=== PATIENT | female | born 1975 | race American Indian/Alaskan Native ===

== ENCOUNTER 2019-03-14 12:21 | Emergency (ER) | payer SELFPAY ==
--- NOTE | 2019-03-14 12:30 | Emergency Department Report ---
Blank Doc - Documentation Documentation: This is a 44-year-old female that presents with right knee pain. Patient also has blurry vision and headache. Stated was a trip and fall. This initial assessment/diagnostic orders/clinical plan/treatment(s) is/are subject to change based on patient's health status, clinical progression and re- assessment by fellow clinical providers in the ED. Further treatment and workup at subsequent clinical providers discretion. Patient/guardians urged not to elope from the ED as their condition may be serious if not clinically assessed and managed. Initial orders include: 1- Patient sent to [facility] for further evaluation and treatment 2- labs 3- CT head 4- xray
[2019-03-14] MEDS ORDERED: CATAPRES PO ONE (13:07)
[2019-03-14 13:23] LABS: Basophils % (Auto) 0.4 % (0.0-1.8); Eosinophils # (Auto) 0.2 K/mm3 (0.0-0.4); Eosinophils % (Auto) 1.6 % (0.0-4.3); Hemoglobin 11.6 gm/dl (10.1-14.3); Lymphocytes # (Auto) 3.4 K/mm3 (1.2-5.4); Lymphocytes % (Auto) 29.6 % (13.4-35.0); Mean Corpuscular HGB Conc 31 % (30-34); Monocytes # (Auto) 0.9 K/mm3 (0.0-0.8); Monocytes % (Auto) 7.6 % (0.0-7.3); Platelet Count 206 K/mm3 (140-440); Red Blood Count 5.38 M/mm3 (3.65-5.03); Red Cell Distribution Width 15.6 % (13.2-15.2)
[2019-03-14 13:25] LABS: Mean Corpuscular Volume 69 fl (79-97)
[2019-03-14 13:28] LABS: BUN/Creatinine Ratio 10; Blood Urea Nitrogen 7 mg/dL (7-17); Calcium 8.4 mg/dL (8.4-10.2); Hemolysis Index 9
[2019-03-14 13:32] VITALS: BP 211/104
--- NOTE | 2019-03-14 14:04 | XRay Report ---
RIGHT KNEE, 3 views: History: Right knee pain. Normal bone mineralization. Moderate to severe osteoarthritic changes are identified. The medial compartment is most affected. No evidence for fracture, bone lesion or large osteochondral defect. Moderate joint effusion is identified on the lateral view. IMPRESSION: Osteoarthritis. Joint effusion.
[2019-03-14 14:41] LABS: Bilirubin,Urine NEG (Negative); Blood,Urine NEG (Negative); Color,Urine Yellow (Yellow); Mucus,Urine FEW /HPF; Protein,Urine <15 mg/dL mg/dL (Negative); Urobilinogen,Urine < 2.0 mg/dL (<2.0)
[2019-03-14 14:45] LABS: WBC,Urine < 1.0 /HPF (0.0-6.0)
--- NOTE | 2019-03-14 14:57 | Emergency Department Report ---
HPI - General Chief Complaint: Fall Time Seen by Provider: 03/14/19 12:28 - HPI HPI: TO ER WITH R KNEE PAIN. SHE HAD SOME BLURRED VISION 2 DAYS AGO AND FELL. GLF. WITNESSED. NO OTHER INJURY. PMH HTN ON BENICAR OBESE CVA 2001 VISION IS FINE NOW. SHE IS ONLY HERE FOR HER KNEE PAIN. NEURO INTACT. ED Past Medical Hx - Past Medical History Previous Medical History?: Yes Hx Hypertension: Yes - Surgical History Past Surgical History?: Yes Additional Surgical History: Left thumb - Social History Smoking Status: Never Smoker Substance Use Type: None - Medications Home Medications: Home Medications Medication Instructions Recorded Confirmed Last Taken Type hydroCHLOROthiazide [HCTZ] 25 mg PO QDAY #30 tablet 03/14/19 Unknown Rx ED Review of Systems ROS: Stated complaint: BLURRED VISION/(R) KNEE PAIN Other details as noted in HPI Comment: All other systems reviewed and negative Physical Exam - Physical Exam Vital Signs: Vital Signs 03/14/19 03/14/19 03/14/19 12:24 12:54 13:36 Temperature 98.3 F Pulse Rate 76 76 Respiratory 20 16 Rate Blood Pressure 211/104 Blood Pressure 211/104 [Left] O2 Sat by Pulse 97 Oximetry ED Course Vital Signs 03/14/19 03/14/19 03/14/19 12:24 12:54 13:36 Temperature 98.3 F Pulse Rate 76 76 Respiratory 20 16 Rate Blood Pressure 211/104 Blood Pressure 211/104 [Left] O2 Sat by Pulse 97 Oximetry - Reevaluation(s) Reevaluation #1: 03/14/19 15:14 BP TRENDING DOWN 149/101 ED Medical Decision Making - Lab Data Result diagrams: 03/14/19 12:36 03/14/19 12:36 - Radiology Data Radiology results: report reviewed, image reviewed - Medical Decision Making Lab Results 03/14/19 03/14/19 03/14/19 Range/Units 12:36 12:36 12:36 WBC 11.3 H (4.5-11.0) K/mm3 RBC 5.38 H (3.65-5.03) M/mm3 Hgb 11.6 (10.1-14.3) gm/dl Hct 37.0 (30.3-42.9) % MCV 69 L (79-97) fl MCH 22 L (28-32) pg MCHC 31 (30-34) % RDW 15.6 H (13.2-15.2) % Plt Count 206 (140-440) K/mm3 Lymph % (Auto) 29.6 (13.4-35.0) % Cherry % (Auto) 7.6 H (0.0-7.3) % Eos % (Auto) 1.6 (0.0-4.3) % Baso % (Auto) 0.4 (0.0-1.8) % Lymph # 3.4 (1.2-5.4) K/mm3 Cherry # 0.9 H (0.0-0.8) K/mm3 Eos # 0.2 (0.0-0.4) K/mm3 Baso # 0.0 (0.0-0.1) K/mm3 Seg Neutrophils % 60.8 (40.0-70.0) % Seg Neutrophils # 6.9 (1.8-7.7) K/mm3 Sodium 142 (137-145) mmol/L Potassium 3.7 (3.6-5.0) mmol/L Chloride 103.2 (98-107) mmol/L Carbon Dioxide 27 (22-30) mmol/L Anion Gap 16 mmol/L BUN 7 (7-17) mg/dL Creatinine 0.7 (0.7-1.2) mg/dL Estimated GFR > 60 ml/min BUN/Creatinine Ratio 10 % Glucose 104 H (65-100) mg/dL Calcium 8.4 (8.4-10.2) mg/dL HCG, Qual Negative (Negative) Urine Color (Yellow) Urine Turbidity (Clear) Urine pH (5.0-7.0) Ur Specific [place] (1.003-1.030) Urine Protein (Negative) mg/dL Urine Glucose (UA) (Negative) mg/dL Urine Ketones (Negative) mg/dL Urine Blood (Negative) Urine Nitrite (Negative) Urine Bilirubin (Negative) Urine Urobilinogen (<2.0) mg/dL Ur Leukocyte Esterase (Negative) Urine WBC (Auto) (0.0-6.0) /HPF Urine RBC (Auto) (0.0-6.0) /HPF U Epithel Cells (Auto) (0-13.0) /HPF Urine Mucus /HPF 03/14/19 Range/Units Unknown WBC (4.5-11.0) K/mm3 RBC (3.65-5.03) M/mm3 Hgb (10.1-14.3) gm/dl Hct (30.3-42.9) % MCV (79-97) fl MCH (28-32) pg MCHC (30-34) % RDW (13.2-15.2) % Plt Count (140-440) K/mm3 Lymph % (Auto) (13.4-35.0) % Cherry % (Auto) (0.0-7.3) % Eos % (Auto) (0.0-4.3) % Baso % (Auto) (0.0-1.8) % Lymph # (1.2-5.4) K/mm3 Cherry # (0.0-0.8) K/mm3 Eos # (0.0-0.4) K/mm3 Baso # (0.0-0.1) K/mm3 Seg Neutrophils % (40.0-70.0) % Seg Neutrophils # (1.8-7.7) K/mm3 Sodium (137-145) mmol/L Potassium (3.6-5.0) mmol/L Chloride (98-107) mmol/L Carbon Dioxide (22-30) mmol/L Anion Gap mmol/L BUN (7-17) mg/dL Creatinine (0.7-1.2) mg/dL Estimated GFR ml/min BUN/Creatinine Ratio % Glucose (65-100) mg/dL Calcium (8.4-10.2) mg/dL HCG, Qual (Negative) Urine Color Yellow (Yellow) Urine Turbidity Clear (Clear) Urine pH 8.0 H (5.0-7.0) Ur Specific [place] 1.017 (1.003-1.030) Urine Protein <15 mg/dl (Negative) mg/dL Urine Glucose (UA) Neg (Negative) mg/dL Urine Ketones Neg (Negative) mg/dL Urine Blood Neg (Negative) Urine Nitrite Neg (Negative) Urine Bilirubin Neg (Negative) Urine Urobilinogen < 2.0 (<2.0) mg/dL Ur Leukocyte Esterase Neg (Negative) Urine WBC (Auto) < 1.0 (0.0-6.0) /HPF Urine RBC (Auto) 1.0 (0.0-6.0) /HPF U Epithel Cells (Auto) 8.0 (0-13.0) /HPF Urine Mucus Few /HPF Vital Signs 03/14/19 03/14/19 03/14/19 12:24 12:54 13:36 Temperature 98.3 F Pulse Rate 76 76 Respiratory 20 16 Rate Blood Pressure 211/104 Blood Pressure 211/104 [Left] O2 Sat by Pulse 97 Oximetry 03/14/19 15:43 Temperature Pulse Rate Respiratory 17 Rate Blood Pressure Blood Pressure [Left] O2 Sat by Pulse Oximetry XRAY NOTED CRUTCH/IMMOBILIZE TO ORTHO PT DOES TAKE BP MEDS STATES IT IS HIGH BC OF PAIN WE HAVE DISCUSSED HER WEIGHT SHE WILL MONITOR NO HEADACHE, CP OR SOB NEURO INTACT DC HOME WITH DC PLAN OF CARE Critical care attestation.: If time is entered above; I have spent that time in minutes in the direct care of this critically ill patient, excluding procedure time. ED Disposition Clinical Impression: Knee effusion, HTN (hypertension), Fall from ground level Disposition: DC-01 TO HOME OR SELFCARE Is pt being admited?: No Condition: Stable Instructions: DASH Eating Plan (ED), Hypertension (ED) Additional Instructions: DIET TOLERATED LOW FAT DIET- SEE ATTACHED LOW SALT WORK ON WEIGHT AND YOUR BP WILL COME DOWN MEDS ORDERED TODAY IN ER FOLLOW INSTRUCTIONS ON THE BOTTLE CONTINUE HOME BENICAR FOLLOW UP PCP WITHIN 48 HOURS TO ENSURE YOU ARE GETTING BETTER REFERRAL BELOW ACTIVITY TOLERATED KNEE IMMOB FOR THE KNEE PAIN ELEVATE WHEN ABLE RESTING KNEE WILL HELP FLUID ABSORB FOLLOW UP WITH ORTHO MD REFERRAL BELOW MOTRIN OR TYLENOL FOR PAIN OR FEVER RETURN TO THE ER FOR WORSENING SYMPTOMS NOT RELIEVED BY YOUR MEDICATIONS. Prescriptions: hydroCHLOROthiazide [HCTZ] 25 mg PO QDAY #30 tablet Referrals: CALIXTO SHAH MD [Staff Physician] - 3-5 Days [facility] [Outside] - 3-5 Days Time of Disposition: 15:13
--- NOTE | 2019-03-14 15:05 | Cat Scan Report ---
CT HEAD WITHOUT CONTRAST: HISTORY: Headache. TECHNIQUE: Sequential 2.5mm CT images. COMPARISON: none. FINDINGS: Cerebral Parenchyma: Within normal limits. Cerebellum: Within normal limits. Brainstem: Within normal limits. Ventricles: Normal. Sella: Normal. Extra-axial spaces: Normal. Basal Cisterns: Normal. Intracranial Hemorrhage: None. Midline Shift: None. Calvarium: Normal. Sinuses: Normal. Mastoid Air Cells: Normal. Visualized Orbits: Normal. IMPRESSION: Cranial CT scan within normal limits.
[2019-03-14] MEDS ORDERED: HCTZ PO ONE (15:10)
[2019-03-14] MEDS ORDERED: IBUPROFEN PO ONE (15:12)
== END 2019-03-14 16:01 | disposition home or self-care (01) ==
LOC: ED 12:21
DX: M25.461 Effusion, right knee (principal); R51 Headache; I10 Essential (primary) hypertension; Z98.890 Other specified postprocedural states; W18.30XA Fall on same level, unspecified, initial encounter; Y93.89 Activity, other specified; Y92.89 Other specified places as the place of occurrence of the external cause; Y99.8 Other external cause status
CPT/HCPCS: 36415; 70450; 80048; 81001; 84703; 85025

== ENCOUNTER 2021-04-15 21:52 | Emergency (ER) | payer SELFPAY | END 2021-04-15 23:00 | disposition left against medical advice (07) | LOC: ED 21:52 | DX: R07.9 Chest pain, unspecified (principal); Z53.21 Procedure and treatment not carried out due to patient leaving prior to being seen by health care provider ==

== ENCOUNTER 2022-06-29 09:21 | Emergency (ER) | payer SELFPAY ==
[2022-06-29] MEDS ORDERED: cloNIDine 0.2 MG TAB PO ONE (10:24)
[2022-06-29] MEDS ORDERED: KETOROLAC 60 MG/2 ML INJ IM ONE (11:15)
--- NOTE | 2022-06-29 11:28 | Emergency Department Report ---
HPI - General Chief Complaint: Fall Time Seen by Provider: 06/29/22 10:58 - HPI HPI: Room 25 Patient is a 47-year-old female present with chief complaint of pain after fall. The patient states 2 days ago while getting out of her car she tripped over the curb landing on her left side. Patient denies head injury or loss of consciousness. Patient complains of pain in her left hip and left shoulder from the fall. Patient states has been taking ibuprofen but still has pain. Patient currently gives her pain a score of 9/10 ED Past Medical Hx - Past Medical History Previous Medical History?: Yes Hx Hypertension: Yes Additional medical history: Morbid obesity - Surgical History Past Surgical History?: Yes Additional Surgical History: Left thumb - Family History Family history: no significant - Social History Smoking Status: Current Every Day Smoker (1/7 pack/day) Substance Use Type: None (Denies illicit drug use), Alcohol (Occasional) - Medications Home Medications: Home Medications Medication Instructions Recorded Confirmed Last Taken Type hydroCHLOROthiazide [HCTZ] 25 mg PO QDAY #30 tablet 03/14/19 Unknown Rx Cyclobenzaprine [Flexeril] 10 mg PO TID PRN #10 06/29/22 Unknown Rx HYDROcodone/APAP 5-325 [Beverly 1 - 2 each PO Q6HR PRN #7 tablet 06/29/22 Unknown Rx 5/325] Ibuprofen [Motrin 800 MG tab] 800 mg PO Q8HR PRN #20 tablet 06/29/22 Unknown Rx ED Review of Systems ROS: Stated complaint: SHOULDER PAIN/HIP PAIN Other details as noted in HPI Constitutional: no symptoms reported Eyes: denies: eye pain ENT: denies: throat pain Respiratory: no symptoms reported Cardiovascular: denies: chest pain Endocrine: no symptoms reported Gastrointestinal: denies: abdominal pain Musculoskeletal: arthralgia, myalgia Neurological: denies: headache Physical Exam - Physical Exam Vital Signs: Vital Signs 06/29/22 09:41 Temperature 98.5 F Pulse Rate 71 Respiratory 20 Rate Blood Pressure 217/127 [Right] O2 Sat by Pulse 99 Oximetry Physical Exam: GENERAL: The patient is well-developed well-nourished female lying on stretcher not appearing to be in acute distress. [] HEENT: Normocephalic. Atraumatic. Extraocular motions are intact. Patient has moist mucous membranes. NECK: Supple. Trachea midline CHEST/LUNGS: There is no respiratory distress noted. HEART/CARDIOVASCULAR: Regular. There is no tachycardia. 2+ left radial pulse SKIN: There is no rash. There is no edema. There is no diaphoresis. NEURO: The patient is awake, alert, and oriented. The patient is cooperative. The patient has no focal neurologic deficits. The patient has normal speech. GCS 15 MUSCULOSKELETAL: There is tenderness to palpation of the left elbow, left humerus and along the left shoulder. No deformity. ED Course Vital Signs 06/29/22 09:41 Temperature 98.5 F Pulse Rate 71 Respiratory 20 Rate Blood Pressure 217/127 [Right] O2 Sat by Pulse 99 Oximetry ED Medical Decision Making - Radiology Data Radiology results: report reviewed (Left hip x-ray, left shoulder x-ray, left elbow x-ray), image reviewed (Left hip x-ray, left shoulder x-ray, left elbow x- ray) interpreted by me: Left elbow x-ray-no acute fracture, no dislocation Left shoulder x-ray-no acute fracture, no AC separation, no dislocation Left hip x-ray-no acute fracture, no dislocation [address] [address] XRay Report Signed Patient: CRUZ STEEN MR#: [id number] : 1975 Acct:[id number] Age/Sex: 47 / F ADM Date: 06/29/22 Loc: ED Attending Dr: Ordering Physician: GIULIA SUERO MD Date of Service: 06/29/22 Procedure(s): XR hip 2-3V LT Accession Number(s): [id number] cc: GIULIA SUERO MD Fluoro Time In Minutes: Left hip-2 views INDICATION: Pain after fall. COMPARISON: None available. IMPRESSION: No acute osseous abnormality. Normal alignment. No significant DJD. Soft tissues are unremarkable. Signer Name: Caleb Mustafa MD Signed: 06/29/2022 11:52 AM Workstation Name: [id number] Transcribed By: PAULINE Dictated By: Caleb Mustafa MD Electronically Authenticated By: Caleb Mustafa MD Signed Date/Time: 06/29/22 1152 DD/ 1151 TD/TT: [facility] [address] [address] XRay Report Signed Patient: CRUZ STEEN MR#: [id number] : 1975 Acct:[id number] Age/Sex: 47 / F ADM Date: 06/29/22 Loc: ED Attending Dr: Ordering Physician: GIULIA SUERO MD Date of Service: 06/29/22 Procedure(s): XR shoulder 2+V LT Accession Number(s): [id number] cc: GIULIA SUERO MD Fluoro Time In Minutes: Left shoulder-4 views INDICATION: Pain after fall. COMPARISON: None available. IMPRESSION: No acute osseous abnormality. Normal alignment. Mild acromioclavicular and glenohumeral degenerative arthrosis. Soft tissues are unremarkable. Signer Name: Caleb Mustafa MD Signed: 06/29/2022 11:51 AM Workstation Name: [id number] Transcribed By: JW Dictated By: Caleb Mustafa MD Electronically Authenticated By: Caleb Mustafa MD Signed Date/Time: 06/29/22 1151 DD/ 1151 TD/TT: [address] [address] XRay Report Signed Patient: CRUZ STEEN MR#: [id number] : 1975 Acct:[id number] Age/Sex: 47 / F ADM Date: 06/29/22 Loc: ED Attending Dr: Ordering Physician: GIULIA SUERO MD Date of Service: 06/29/22 Procedure(s): XR elbow 3+V LT Accession Number(s): [id number] cc: GIULIA SUERO MD Fluoro Time In Minutes: Left elbow-3 views INDICATION: Pain after fall. COMPARISON: None available. IMPRESSION: No acute osseous abnormality. Normal alignment. No significant DJD. Soft tissues are unremarkable. Signer Name: Caleb Mustafa MD Signed: 06/29/2022 11:52 AM Workstation Name: [id number] Transcribed By: JW Dictated By: Caleb Mustafa MD Electronically Authenticated By: Caleb Mustafa MD Signed Date/Time: 06/29/221151 DD/ 51 TD/TT: - Differential Diagnosis Shoulder contusion, hip contusion, pubic rami fracture, AC separation Critical care attestation.: If time is entered above; I have spent that time in minutes in the direct care of this critically ill patient, excluding procedure time. ED Disposition Clinical Impression: Contusion of left shoulder, Contusion of left hip, Left elbow contusion Disposition: HOME / SELF CARE / HOMELESS Is pt being admited?: No Does the pt Need Aspirin: No Condition: Stable Instructions: Elbow Contusion, Contusion, [id number] Additional Instructions: Return to the emergency department should you develop worsening symptoms, inability to tolerate food or liquids, high fever or any other concerns Prescriptions: Cyclobenzaprine [Flexeril] 10 mg PO TID PRN #10 PRN Reason: Muscle Spasm Ibuprofen [Motrin 800 MG tab] 800 mg PO Q8HR PRN #20 tablet PRN Reason: Pain, Moderate (4-6) HYDROcodone/APAP 5-325 [[place]ever[place] 5/325] 1 - 2 each PO Q6HR PRN #7 tablet PRN Reason: Pain Referrals: CALIXTO GOULD MD [Staff Physician] - 3-5 Days (Dr. Gould is an orthopedic surgeon. Please follow-up with him for further evaluation if your pain persists) Time of Disposition: 12:20
--- NOTE | 2022-06-29 11:55 | XRay Report ---
Left shoulder-4 views INDICATION: Pain after fall. COMPARISON: None available. IMPRESSION: No acute osseous abnormality. Normal alignment. Mild acromioclavicular and glenohumeral degenerative arthrosis. Soft tissues are unremarkable. Signer Name: Caleb Mustafa MD Signed: 06/29/2022 11:51 AM Workstation Name: [id number]
--- NOTE | 2022-06-29 11:56 | XRay Report ---
Left elbow-3 views INDICATION: Pain after fall. COMPARISON: None available. IMPRESSION: No acute osseous abnormality. Normal alignment. No significant DJD. Soft tissues are u nremarkable. Signer Name: Caleb Mustafa MD Signed: 06/29/2022 11:52 AM Workstation Name: [id number]
--- NOTE | 2022-06-29 11:56 | XRay Report ---
Left hip-2 views INDICATION: Pain after fall. COMPARISON: None available. IMPRESSION: No acute osseous abnormality. Normal alignment. No significant DJD. Soft tissues are u nremarkable. Signer Name: Caleb Mustaaf MD Signed: 06/29/2022 11:52 AM Workstation Name: [id number]
[2022-06-29 14:01] VITALS: BP 169/96
== END 2022-06-29 14:05 | disposition home or self-care (01) ==
LOC: ED 09:21
DX: S40.012A Contusion of left shoulder, initial encounter (principal); S50.02XA Contusion of left elbow, initial encounter; S70.02XA Contusion of left hip, initial encounter; I10 Essential (primary) hypertension; F17.210 Nicotine dependence, cigarettes, uncomplicated; Z98.890 Other specified postprocedural states; Z72.89 Other problems related to lifestyle; W18.39XA Other fall on same level, initial encounter; Y93.89 Activity, other specified; Y92.89 Other specified places as the place of occurrence of the external cause; Y99.8 Other external cause status
CPT/HCPCS: 73030; 73080; 73502; 96372; 99283; J1885